=== PATIENT | female | born 1985 | race Caucasian/White ===

== ENCOUNTER 2017-12-30 17:50 | Emergency (ER) | payer SELFPAY ==
[~2017-12-30] VITALS: Ht 149.9 cm; Wt 55.3 kg
[2017-12-30 18:01] VITALS: Ht 149.9 cm; Wt 55.3 kg
[2017-12-30 18:59] LABS: microscopic required? NO
[2017-12-30 19:05] LABS: BASOPHIL % 0.4 % (0-2); PLATELET COUNT 278 x10^3mcL (130-400)
[2017-12-30 19:07] LABS: UA SPECIFIC GRAVITY 1.015 (1.005-1.035); urine erythrocyte NEGATIVE (NEGATIVE)
[2017-12-30 19:13] LABS: CALCIUM 9.4 mg/dL (8.5-10.1); CHLORIDE SERUM 99 mmol/L (98-107); CREATININE SERUM 0.6 mg/dL (0.6-1.0); GFR1 > 60 mL/min; GLUCOSE SERUM 94 mg/dL (74-106); POTASSIUM SERUM 4.4 mmol/L (3.5-5.1); SODIUM SERUM 136 mmol/L (136-145)
[2017-12-30 19:27] LABS: ALBUMIN 4.1 g/dL (3.4-5.0); ALKALINE PHOSPHATASE 48 U/L (46-116); ALT/SGPT 21 U/L (14-59); AST/SGOT 14 U/L (15-37); BILIRUBIN TOTAL 0.27 mg/dL (0.20-1.00); FREE T4 0.95 ng/dL (0.76-1.46); TOTAL PROTEIN, SERUM 8.1 g/dL (6.4-8.2)
[2017-12-30 22:00] VITALS: BP 100/78
== END 2017-12-30 22:21 | disposition home or self-care (01) ==
LOC: ED 17:50
PROVIDERS: Emergency Medicine
DX: M25.50 Pain in unspecified joint (principal)
CPT/HCPCS: 36415; 84439; J1885; J3010

== ENCOUNTER 2018-05-14 02:08 | Emergency (ER) | payer OTHER ==
[2018-05-14 04:54] VITALS: BP 123/78
== END 2018-05-14 04:54 | disposition home or self-care (01) ==
LOC: ED 02:08
DX: R10.2 Pelvic and perineal pain (principal); R11.0 Nausea; R10.30 Lower abdominal pain, unspecified; Z98.890 Other specified postprocedural states
CPT/HCPCS: J1885; Q0162